=== PATIENT | male | born 1935 | race Caucasian/White ===

== ENCOUNTER 2016-05-12 10:49 | Outpatient (CLI) | payer MEDICARE, OTHER | END 2016-05-12 10:50 | disposition home or self-care (01) | DX: M19.011 Primary osteoarthritis, right shoulder (principal); K21.9 Gastro-esophageal reflux disease without esophagitis ==

== ENCOUNTER 2016-07-12 09:47 | Outpatient (CLI) | payer MEDICARE, OTHER | END 2016-07-12 09:48 | disposition home or self-care (01) | DX: Z12.5 Encounter for screening for malignant neoplasm of prostate (principal) | CPT/HCPCS: 36415; G0103 ==

== ENCOUNTER 2016-07-19 11:38 | Outpatient (CLI) | payer MEDICARE, OTHER | END 2016-07-19 11:39 | disposition home or self-care (01) | DX: Z86.2 Personal history of diseases of the blood and blood-forming organs and certain disorders involving the immune mechanism (principal) ==

== ENCOUNTER 2016-07-31 16:00 | Outpatient (CLI) | payer MEDICARE, OTHER | END 2016-07-31 16:01 | disposition home or self-care (01) | DX: Z12.11 Encounter for screening for malignant neoplasm of colon (principal) ==

== ENCOUNTER 2016-08-16 14:36 | Outpatient (CLI) | payer MEDICARE, OTHER | END 2016-08-16 14:37 | disposition home or self-care (01) | DX: M48.06 Spinal stenosis, lumbar region (principal) ==

== ENCOUNTER 2016-10-13 14:25 | Outpatient (CLI) | payer MEDICARE, OTHER ==
[2016-10-13 18:10] LABS: BASOPHILS % (AUTO) 0.8 %; EOSINOPHILS # (AUTO) 0.3 10^3/uL (0.0-0.7); EOSINOPHILS % (AUTO) 5.1 %; HCT - HEMATOCRIT 40.8 % (42.0-52.0); HGB - HEMOGLOBIN 14.1 g/dL (14.0-18.0); LYMPHOCYTES # (AUTO) 1.4 10^3/uL (1.5-3.5); LYMPHOCYTES % (AUTO) 27.8 %; MEAN CORPUSCULAR HEMOGLOBIN 32.8 pg (27.0-31.0); MEAN CORPUSCULAR HGB CONC 34.5 g/dL (32.0-36.0); MEAN CORPUSCULAR VOLUME 95.1 fL (80.0-94.0); MEAN PLATELET VOLUME 7.8 fL (7.4-11.4); MONOCYTES # (AUTO) 0.4 10^3/uL (0.0-1.0); MONOCYTES % (AUTO) 7.8 %; NEUTROPHILS # (AUTO) 2.9 10^3/uL (1.5-6.6); NEUTROPHILS % (AUTO) 58.5 %; NUCLEATED RED BLOOD CELLS AUTO 0.1 /100WBC; RED BLOOD COUNT 4.29 10^6/uL (4.70-6.10); RED CELL DISTRIBUTION WIDTH 13.4 % (12.0-15.0)
== END 2016-10-13 14:26 | disposition home or self-care (01) ==
LOC: LAB.F 14:25
PROVIDERS: ATTEND Physician Assistant Medical
DX: Z86.2 Personal history of diseases of the blood and blood-forming organs and certain disorders involving the immune mechanism (principal)
CPT/HCPCS: 36415; 85025

== ENCOUNTER 2016-10-31 14:35 | Outpatient (CLI) | payer MEDICARE, OTHER ==
--- NOTE | 2016-10-31 17:02 | XRAY Report ---
TWO VIEW CHEST: 10/31/2016 CLINICAL INDICATION: Cough, wheezing. COMPARISON: 11/01/2015 Frontal and lateral views of the chest demonstrate a normal cardiac silhouette. The lungs appear hyp erinflated, but clear. No effusion or pneumothorax is present. IMPRESSION: HYPERINFLATION, SUGGESTIVE OF COPD. NO EVIDENCE OF ACUTE CARDIOPULMONARY DISEASE. JOB #: [id number] EXT JOB #:[id number]
== END 2016-10-31 14:36 | disposition home or self-care (01) ==
LOC: DI.S 14:35
PROVIDERS: ATTEND Physician Assistant Medical
DX: R91.8 Other nonspecific abnormal finding of lung field (principal)
CPT/HCPCS: 71020

== ENCOUNTER 2017-07-04 10:06 | Outpatient (CLI) | payer MEDICARE, OTHER | END 2017-07-04 10:07 | disposition home or self-care (01) | LOC: LAB.F 10:06 | PROVIDERS: ATTEND Urology | DX: C61 Malignant neoplasm of prostate (principal) | CPT/HCPCS: 36415; 84153 ==

== ENCOUNTER 2018-04-08 10:07 | Outpatient (CLI) | payer MEDICARE, OTHER ==
[2018-04-08 18:25] LABS: ALBUMIN 3.8 g/dL (3.2-5.5); ALBUMIN/GLOBULIN RATIO 1.4 (1.0-2.2); BILIRUBIN,TOTAL 1.1 mg/dL (0.2-1.0); CALCIUM 9.5 mg/dL (8.5-10.3); CREATININE 0.9 mg/dL (0.6-1.2); TOTAL PROTEIN 6.5 g/dL (6.7-8.2)
[2018-04-08 19:35] LABS: BASOPHILS % (AUTO) 0.6 %; EOSINOPHILS # (AUTO) 0.2 10^3/uL (0.0-0.7); EOSINOPHILS % (AUTO) 3.7 %; LYMPHOCYTES # (AUTO) 0.9 10^3/uL (1.5-3.5); LYMPHOCYTES % (AUTO) 19.7 %; MEAN CORPUSCULAR HEMOGLOBIN 33.1 pg (27.0-31.0); MEAN CORPUSCULAR HGB CONC 33.7 g/dL (32.0-36.0); MEAN CORPUSCULAR VOLUME 98.3 fL (80.0-94.0); MEAN PLATELET VOLUME 7.7 fL (7.4-11.4); MONOCYTES # (AUTO) 0.4 10^3/uL (0.0-1.0); MONOCYTES % (AUTO) 9.5 %; NEUTROPHILS % (AUTO) 66.5 %; PLT - PLATELET COUNT 185 10^3/uL (130-450); RED BLOOD COUNT 4.53 10^6/uL (4.70-6.10); RED CELL DISTRIBUTION WIDTH 13.9 % (12.0-15.0); WHITE BLOOD COUNT 4.6 x10^3/uL (4.8-10.8)
== END 2018-04-08 10:08 | disposition home or self-care (01) ==
LOC: LAB.F 10:07
PROVIDERS: ATTEND Physician Assistant Medical
DX: Z51.81 Encounter for therapeutic drug level monitoring (principal)
CPT/HCPCS: 36415; 80053; 85025

== ENCOUNTER 2018-05-23 08:00 | Outpatient (CLI) | payer MEDICARE, OTHER | END 2018-05-23 23:59 | disposition home or self-care (01) | LOC: LAB.F 08:00 | PROVIDERS: ATTEND Physician Assistant Medical | DX: R33.9 Retention of urine, unspecified (principal); N39.0 Urinary tract infection, site not specified | CPT/HCPCS: 87086 ==

== ENCOUNTER 2018-06-21 14:47 | Outpatient (CLI) | payer MEDICARE, OTHER | END 2018-06-21 14:48 | disposition home or self-care (01) | LOC: LAB.F 14:47 | PROVIDERS: ATTEND Urology | DX: C61 Malignant neoplasm of prostate (principal) | CPT/HCPCS: 36415; 84153 ==

== ENCOUNTER 2018-08-11 09:13 | Emergency (ER) | payer MEDICARE, OTHER ==
[2018-08-11 09:22] VITALS: BP 115/63
== END 2018-08-11 10:32 | disposition left against medical advice (07) ==
LOC: ED 09:13
DX: M25.552 Pain in left hip (principal); M25.551 Pain in right hip; R10.2 Pelvic and perineal pain; Z53.21 Procedure and treatment not carried out due to patient leaving prior to being seen by health care provider
CPT/HCPCS: 99281

== ENCOUNTER 2018-11-05 17:34 | Emergency (ER) | payer MEDICARE, OTHER ==
--- NOTE | 2018-11-05 19:40 | Ultrasound Report ---
Reason: RLE swelling Procedure Date: 11/05/2018 Accession Number: [id number] / [id number] Procedure: US - Duplex Ext Veins Right CPT Code: FULL RESULT: EXAM: RIGHT LOWER EXTREMITY VENOUS ULTRASOUND EXAM DATE: 11/05/2018 07:15 PM. CLINICAL HISTORY: RLE swelling. COMPARISON: None. TECHNIQUE: Real-time sonographic vascular imaging was performed by the button sewing machine operator through the lower extremity utilizing both color-flow and Doppler spectral analysis. Multiple human resources hr representative static images were saved for review. FINDINGS: Common Femoral Vein (CFV): Normal. CFV-GSV Junction: Normal. Profunda Femoral Vein (PFV): Normal. Femoral Vein (FV) Prox: Normal. Femoral Vein (FV) Mid: Normal. Femoral Vein (FV) Dist: Normal. Popliteal Vein: Normal. Posterior Tibial Veins: Normal. Peroneal Veins: Normal. Contralateral Side CFV: Normal. Other: Small 2.3 x 0.6 x 1.5 cm anterior the fluid collection, likely a suprapatellar joint effusion. Mild right calf subcutaneous edema. IMPRESSION: 1. No evidence for deep venous thrombosis. 2. Apparent small right knee joint effusion. 3. Mild right calf subcutaneous edema. RADIA
[2018-11-05 20:32] VITALS: BP 136/102
--- NOTE | 2018-11-05 20:32 | ED Physician Documentation ---
History of Present Illness - Stated complaint Stated Complaint: RT LEG SWELLING - Chief complaint Chief Complaint: Ext Problem - History obtained from History obtained from: Patient, Family - History of Present Illness Timing: How many days ago Pain level max: 0 Pain level now: 0 - Additonal information Additional information: R LE swelling. Unknown cause. no surgery. no travel. no immobilization. Nothing makes it better or worse. He has had trouble with sciatica in his back, on the left side and so has been putting more weight on the right side. Does use a walker occasionally. No redness. Review of Systems Constitutional: denies: Fever, Chills Cardiac: denies: Chest pain / pressure Respiratory: denies: Dyspnea, Cough, Wheezing : denies: Unable to Void, Incontinent Skin: denies: Rash PD PAST MEDICAL HISTORY - Past Medical History Past Medical History: Yes Cardiovascular: None Respiratory: Asthma Neuro: None Endocrine/Autoimmune: None GI: None : None HEENT: None Psych: None Musculoskeletal: Chronic back pain, Other Derm: None Other Past Medical History: bilateral hernias - Past Surgical History Past Surgical History: No Ortho: Spine surgery - Present Medications Home Medications: Ambulatory Orders Medication Instructions Recorded Confirmed Albuterol Sulf [Ventolin Hfa 1 puffs IH Q6HR PRN 08/11/18 08/11/18 Inhaler] Azelastine HCl 1 spray BID 08/11/18 08/11/18 - Allergies Allergies/Adverse Reactions: Allergies Allergy/AdvReac Type Severity Reaction Status Date / Time codeine AdvReac Unknown Verified 11/05/18 17:45 - Social History Does the pt smoke?: No Smoking Status: Never smoker Does the pt drink ETOH?: Yes ETOH Use: Wine Does the pt have substance abuse?: No - Immunizations Immunizations are current?: Yes - POLST Patient has POLST: No PD ED PE NORMAL - Vitals Vital signs reviewed: Yes - General General: Alert and oriented X 3, No acute distress, Well developed/nourished - HEENT HEENT: Moist mucous membranes - Neck Neck: Supple, no meningeal sign - Cardiac Cardiac: RRR - Respiratory Respiratory: No respiratory distress, Clear bilaterally - Back Back: No spinal TTP - Derm Derm: Warm and dry - Extremities Extremities: Other (Swelling to the right lower extremity from the knee down to the toes. No calf tenderness. No cord. Normal skin color. Neurovascular intact) - Neuro Neuro: Alert and oriented X 3 - Psych Psych: Normal mood, Normal affect Results - Vitals Vitals: Vital Signs - 24 hr 11/05/18 11/05/18 17:40 20:30 Temperature 36.7 C 36.7 C Heart Rate 108 H 93 Respiratory 14 16 Rate Blood Pressure 114/71 136/102 H O2 Saturation 99 97 Oxygen O2 Source Room air - Rads (name of study) Right knee x-ray Radiology: Prelim report reviewed, EMP read contemporaneously, See rad report (No acute radiographic abnormalities. small effusion) Right lower extremity duplex ultrasound Radiology: Prelim report reviewed, EMP read contemporaneously, See rad report (No evidence for deep venous thrombosis. Apparent small right knee joint effusion. . Mild right calf subcutaneous edema. ) PD MEDICAL DECISION MAKING - ED course Complexity details: considered differential, d/w patient, d/w family ED course: Patient with a small right knee effusion. Will utilize his walker at home. Not having significant pain. We will have him follow-up with his doctor for further care. No DVT. Patient and family counseled regarding signs and symptoms for which I believe and urgent re-evaluation would be necessary. Patient with good understanding of and agreement to plan and is comfortable going home at this time This document was made in part using voice recognition software. While efforts are made to proofread this document, sound alike and grammatical errors may occur. Departure - Departure Disposition: 01 Home, Self Care Clinical Impression: Lower leg edema, Knee effusion, right Osteoarthritis of right knee Qualifiers: Osteoarthritis type: unspecified Qualified Code(s): M17.11 - Unilateral primary osteoarthritis, right knee Condition: Good Instructions: ED Degenerative Joint Disease, ED Leg Swelling Unilateral Follow-Up: Leticia Harrell PA-C [Primary Care Provider] - Within 1 week Comments: There is no blood clot on your ultrasound tonight. Your x-ray does show arthritis in the knee. The swelling is likely from putting extra weight on the right knee because of your back. Continue to utilize your walker at all times to help take pressure off of this leg. This should improve on its own. Follow- up with your doctor for further care. elevation and rest will help as well. Discharge Date/Time: 11/05/18 20:43
--- NOTE | 2018-11-05 20:46 | XRAY Report ---
Reason: R knee swelling Procedure Date: 11/05/2018 Accession Number: [id number] / [id number] Procedure: XR - Knee 4 View RT CPT Code: FULL RESULT: EXAM: RIGHT KNEE RADIOGRAPHY EXAM DATE: 11/05/2018 08:17 PM. CLINICAL HISTORY: R knee swelling. COMPARISON: None. TECHNIQUE: 4 views. FINDINGS: Bones: No acute fractures or suspicious bone lesions. Joints: Small effusion. No subluxations. Soft Tissues: 5 mm calcification in the suprapatellar region, may reflect old trauma or inflammation. IMPRESSION: No acute radiographic abnormalities. RADIA
== END 2018-11-05 20:43 | disposition home or self-care (01) ==
LOC: ED 17:34
DX: M17.11 Unilateral primary osteoarthritis, right knee (principal); M25.461 Effusion, right knee
CPT/HCPCS: 99283

== ENCOUNTER 2020-07-23 11:55 | Outpatient (CLI) | payer MEDICARE, OTHER ==
[2020-07-23 15:46] LABS: CREATININE 0.8 mg/dL (0.6-1.2)
== END 2020-07-23 11:56 | disposition home or self-care (01) ==
LOC: LAB.S 11:55
PROVIDERS: ATTEND Family Medicine Sports Medicine
DX: I48.21 Permanent atrial fibrillation (principal)
CPT/HCPCS: 36415; 82565

== ENCOUNTER 2020-08-22 21:50 | Emergency (ER) | payer MEDICARE, OTHER ==
--- NOTE | 2020-08-22 22:38 | ED Physician Documentation ---
PD HPI WOUND RECHECK - Stated complaint Stated Complaint: - Chief complaint Chief Complaint: Abd Pain - Histroy obtained from History obtained from: Patient - History of Present Illness Location: Other (he had bladder and urethral surgery recently and has 3 drains with bulb suctions. He was trimming the tape attached to one as he emptied the bulb and accidentally cut the drain tubing. He could not get the tubing back onto the bulb stem, so here for help.) Timing - onset: Today Associated symptoms: Drainage (has continued with some drainage from drains. Has follow up in 2 days with home nurse visit tomorrow.). No: Fever, Redness Review of Systems Constitutional: denies: Fever, Chills GI: denies: Abdominal Pain, Nausea, Vomiting PD PAST MEDICAL HISTORY - Past Medical History Cardiovascular: None Respiratory: Asthma Neuro: None Endocrine/Autoimmune: None GI: None : None HEENT: None Psych: None Musculoskeletal: Chronic back pain, Other Derm: None - Past Surgical History Past Surgical History: No Ortho: Spine surgery - Present Medications Home Medications: Ambulatory Orders Medication Instructions Recorded Confirmed Albuterol Sulf [Ventolin Hfa 1 puffs IH Q6HR PRN 08/11/18 08/11/18 Inhaler] Azelastine HCl 1 spray BID 08/11/18 08/11/18 - Allergies Allergies/Adverse Reactions: Allergies Allergy/AdvReac Type Severity Reaction Status Date / Time codeine AdvReac Unknown Verified 08/22/20 22:12 - Social History Does the pt smoke?: No Smoking Status: Never smoker Does the pt drink ETOH?: Yes Does the pt have substance abuse?: No - Immunizations Immunizations are current?: Yes - POLST Patient has POLST: No PD ED PE NORMAL - Vitals Vital signs reviewed: Yes - General General: Alert and oriented X 3, No acute distress, Well developed/nourished - Male Male : Other (he has 3 drains present in perineal and suprapubic areas. The bulb attachments of 2 of them are good but not compressed. The perineal drain is still in place and the tubing is cut. He has the bulb separately with him. ) - Derm Derm: Normal color, Warm and dry - Neuro Neuro: Alert and oriented X 3, Normal speech Results - Vitals Vitals: Vital Signs - 24 hr 08/22/20 08/23/20 22:05 00:48 Temperature 35.8 C L 36.4 C L Heart Rate 85 79 Respiratory 18 19 Rate Blood Pressure 117/78 121/78 O2 Saturation 99 98 Oxygen O2 Source Room air PD MEDICAL DECISION MAKING - ED course Complexity details: considered differential (really just needing the bulb scution unit reattached. I cleansed out the bulb and rinsed with hibiclens solution, to have it clean, and is then well cleaner than he was doing at home. ), d/w patient Departure - Departure Disposition: Home, Self Care Clinical Impression: Visit for wound check Condition: Stable Record reviewed to determine appropriate education?: Yes Comments: Continue with your current wound care and bulb suction care. Follow-up with the home health nurse tomorrow and the urology at Sunday as planned. Discharge Date/Time: 08/22/20 23:45
[2020-08-23 00:49] VITALS: BP 121/78
== END 2020-08-22 23:45 | disposition home or self-care (01) ==
LOC: ED 21:50
DX: N99.89 Other postprocedural complications and disorders of genitourinary system (principal); Y83.8 Other surgical procedures as the cause of abnormal reaction of the patient, or of later complication, without mention of misadventure at the time of the procedure; Y73.2 Prosthetic and other implants, materials and accessory gastroenterology and urology devices associated with adverse incidents
CPT/HCPCS: 99282; 99284

== ENCOUNTER 2021-06-07 10:50 | Outpatient (CLI) | payer MEDICARE, OTHER ==
--- NOTE | 2021-06-07 16:42 | Ultrasound Report ---
PROCEDURE: Head or Neck Soft Tissue INDICATIONS: LUMPS ON FOREHEAD TECHNIQUE: Real time scanning was performed of the forehead region of interest, with image documenta tion. COMPARISON: None. FINDINGS: A 1.5 x 1.7 x 0.5 cm isoechoic, ovoid lesion is seen in the subcutaneous fat, which does no t demonstrate internal vascularity. IMPRESSION: 1. Isoechoic lesion in the area of clinical concern, which may reflect a lipoma. Reviewed by: Pawel Ramirez MD on 06/07/2021 4:41 PM PST Approved by: Pawel Ramirez MD on 06/07/2021 4:41 PM PST Station ID: [id number]
== END 2021-06-07 10:51 | disposition home or self-care (01) ==
LOC: DI 10:50
PROVIDERS: ATTEND Dermatology
DX: R93.89 Abnormal findings on diagnostic imaging of other specified body structures (principal)

== ENCOUNTER 2021-11-02 02:02 | Outpatient (CLI) | payer MEDICARE, OTHER | END 2021-11-02 02:03 | disposition critical access hospital (66) | LOC: EMS 02:02 | DX: R58 Hemorrhage, not elsewhere classified (principal) | CPT/HCPCS: A0425; A0429 ==

== ENCOUNTER 2021-11-02 02:42 | Emergency (ER) | payer MEDICARE, OTHER ==
--- NOTE | 2021-11-02 02:40 | ED Physician Documentation ---
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 He says the lesion was found to be locally invading the underlying bone. He is scheduled to see a reconstructive surgeon tomorrow. He presents due to increasing amount of blood noted into the dressing and, tonight, he woke from sleep and found blood had soaked through the bandage and onto his pillow. He was on eliquis but stopped taking this pre-op, last dose was last Sunday Review of Systems Constitutional: denies: Fever PD PAST MEDICAL HISTORY - Past Medical History Past Medical History: Yes - Past Surgical History Derm: Skin cancer surgery - Present Medications Home Medications: Ambulatory Orders Medication Instructions Recorded Confirmed Albuterol Sulf [Ventolin Hfa 1 puffs IH Q6HR PRN 08/11/18 08/11/18 Inhaler] Azelastine HCl 1 spray BID 08/11/18 08/11/18 Apixaban [Eliquis] 5 mg PO DAILY 11/02/21 11/02/21 - Allergies Allergies/Adverse Reactions: Allergies Allergy/AdvReac Type Severity Reaction Status Date / Time codeine AdvReac Unknown Verified 11/02/21 02:47 tramadol AdvReac Unknown Verified 11/02/21 02:47 - Living Situation Living Situation: reports: With spouse/s.o. Living Arrangement: reports: At home PD ED PE NORMAL - Vitals Vital signs reviewed: Yes - General General: Alert and oriented X 3, No acute distress, Well developed/nourished PD ED PE EXPANDED - HEENT HEENT Visual: 1 - deformity (dressing taken down; approximately 5cm diameter excised skin with xeroform gauze left in place; there is trace oozing of blood from inferior aspect of the wound, source not visualized with gauze kept in place) Results - Vitals Vitals: Oxygen O2 Source Room air PD MEDICAL DECISION MAKING - ED course Complexity details: considered differential, d/w patient, d/w family ED course: dressing taken down but there is xeroform gauze layered in the surgical site and this is left in place. there is minimal/trace slow oozing of blood from the wound. txa is sprayed (using atomizer on syringe) into the surgical site and then onto 4x4 gauze which is placed over the site followed by sterile dressing placed by ED RN and manufacturing technician. He is subsequently observed in ED for an hour and there is no bleeding noted on or into the dressing. Has follow up appointment already scheduled for later today Departure - Departure Disposition: 01 Home, Self Care Clinical Impression: Post-op bleeding Condition: Good Instructions: ED Wound Check Post Op Bleeding Comments: Follow up as scheduled later today. Discharge Date/Time: 11/02/21 05:51
[2021-11-02] MEDS ORDERED: TRANEXAMIC ACID 1,000 MG/10 ML VIAL NAS STA (03:49)
[2021-11-02 04:28] VITALS: BP 136/94
== END 2021-11-02 05:51 | disposition home or self-care (01) ==
LOC: EDUNIT# → ED 02:42
DX: L76.22 Postprocedural hemorrhage of skin and subcutaneous tissue following other procedure (principal); Y84.8 Other medical procedures as the cause of abnormal reaction of the patient, or of later complication, without mention of misadventure at the time of the procedure; Y82.8 Other medical devices associated with adverse incidents
CPT/HCPCS: 99281; 99283